=== PATIENT | male | born 1995 | race Caucasian/White ===

== ENCOUNTER 2020-06-05 12:12 | Emergency (ER) | payer OTHER ==
[2020-06-05 12:18] VITALS: BP 129/70; PULSE 95; BMI 26.9
[2020-06-05] MEDS ORDERED: KETOROLAC TROMETHAMINE 30 MG/1 ML VIAL IM ONE (12:54)
[2020-06-05] MEDS ORDERED: METHOCARBAMOL 500 MG TABLET PO ONE (12:54)
[2020-06-05] MEDS ORDERED: METHOCARBAMOL 500 MG TABLET ONE (12:59)
[2020-06-05] MEDS ORDERED: KETOROLAC TROMETHAMINE 30 MG/1 ML VIAL ONE (12:59)
== END 2020-06-05 13:16 | disposition home or self-care (01) ==
LOC: JERFT 12:12
PROC: 3E0233Z Introduction of Anti-inflammatory into Muscle, Percutaneous Approach (ICD-10-PCS; principal; 2020-06-05)
DX: M54.5 Low back pain (principal)
CPT/HCPCS: 99284-25

== ENCOUNTER 2021-08-30 15:12 | Emergency (ER) | payer OTHER ==
[2021-08-30 15:35] VITALS: BP 111/66; PULSE 74; TEMP 97; BMI 27.9
[2021-08-30] MEDS ORDERED: IBUPROFEN 600 MG TABLET (FP) PO ONE ×2 (17:11→17:18)
== END 2021-08-30 17:59 | disposition home or self-care (01) ==
LOC: JERFT 15:12
DX: M54.6 Pain in thoracic spine (principal); V43.63XA Car passenger injured in collision with pick-up truck in traffic accident, initial encounter
CPT/HCPCS: 72100-TC-FY; 99283-25

== ENCOUNTER 2023-02-01 14:23 | Emergency (ER) | payer OTHER ==
[2023-02-01 14:36] VITALS: BP 126/56; PULSE 94; RESP 17; TEMP 98.5; BMI 31.5
[2023-02-01] MEDS ORDERED: ALBUTEROL SO4 2.5/IPRATROPIUM 0.5 INH SOL 3 ML VIAL.NEB. NEB SCH (15:45)
== END 2023-02-01 16:35 | disposition home or self-care (01) ==
LOC: JERFT 14:23
DX: R05.9 Cough, unspecified (principal); R09.89 Other specified symptoms and signs involving the circulatory and respiratory systems; R06.7 Sneezing; J06.9 Acute upper respiratory infection, unspecified; Z20.822 Contact with and (suspected) exposure to COVID-19
CPT/HCPCS: 0241U-QW; 99283-25

== ENCOUNTER 2024-04-25 13:41 | Emergency (ER) | payer OTHER ==
[2024-04-25 13:54] VITALS: BP 153/87; PULSE 82; RESP 16; TEMP 98.8; BMI 31.0
[2024-04-25 14:40] LABS: PH,URINE 5.5 (5.0-8.0); URINE APPEARANCE CLOUDY; URINE BILIRUBIN 1+ (NEGATIVE); URINE COLOR DK YELLOW; URINE GLUCOSE (UA) NEGATIVE (NEGATIVE); URINE KETONE 1+ (NEGATIVE); URINE LEUK ESTERASE NEGATIVE (NEGATIVE); URINE NITRITE NEGATIVE (NEGATIVE); URINE PROTEIN TRACE (NEGATIVE)
== END 2024-04-25 15:22 | disposition home or self-care (01) ==
LOC: JERFT 13:41
DX: R35.0 Frequency of micturition (principal)
CPT/HCPCS: 36415; 81003; 82962; 87086; 87491; 87591; 99283-25